=== PATIENT | female | born 1965 | race American Indian/Alaskan Native ===

== ENCOUNTER 2017-04-09 16:33 | Emergency (ER) | payer OTHER ==
[~2017-04-09] VITALS: Ht 177.8 cm; Wt 90.7 kg
[2017-04-09] MEDS ORDERED: KETOROLAC TROME10 MG PO (18:40)
== END 2017-04-09 18:56 | disposition home or self-care (01) ==
LOC: ED 16:33
DX: R10.9 Unspecified abdominal pain (principal)
CPT/HCPCS: 80053; 81001; 82150; 83690; 84703; 85025; 96374; 99283; J1885

== ENCOUNTER 2018-04-10 21:38 | Emergency (ER) | payer OTHER ==
[~2018-04-10] VITALS: Ht 177.8 cm; Wt 90.7 kg
--- OUTSIDE RECORDS SUMMARY | ~2018-04-10 | XMS | Clinical Summary ---
Demographics + + + | Address | [address] | | | [place] [address] | + + + | Home Phone | | + + + | Preferred Language | Unknown | + + + | Marital Status | Unknown | + + + | Advent Affiliation | Unknown | + + + | Race | Unknown | + + + | Ethnic Group | Unknown | + + + Author + + + | Author | [facility] | + + + | Organization | [facility] | + + + | Address | Unknown | + + + | Phone | Unavailable | + + + Care Team Providers + +------+ + | Care Cooker Tender Name | Role | Phone | + +------+ + PP | Unavailable | + +------+ + Allergies Not on File Current Medications Not on file Active Problems Not on file Social History + +-------+ +--------+------+ | Tobacco Use | Types | Packs/Day | Years | Date | | | | | Used | | + +-------+ +--------+------+ | Never Assessed | | | | | + +-------+ +--------+------+ + + + | Sex Assigned at | Date Recorded | | | | + + + | Not on file | | + + + Plan of Treatment Not on file Results Not on filefrom Last 3 Months Insurance + +--------+ +------+-------+ + | Payer | Benefi | Subscriber | Type | Phone | Address | | | t Plan | ID | | | | | | / | | | | | | | Group | | | | | + +--------+ +------+-------+ + | MEDICAID | MEDICA | [id number] | | | [address] | | | [place] | | | | [place] | | | INPT & | | | | [id number] | | | OUPT | | | | | + +--------+ +------+-------+ + + +--------+ +--------+ + + | Guarantor Name | Accoun | Relation to | Date | Phone | Billing Address | | | t Type | Patient | of | | | | | | | | | | + +--------+ +--------+ + + | STEPHANIE TUCKER | Person | Self [birth year] Home: | [address] | | | al/Fam | | 1965 | [phone] [place] [address] | | | michelle | | | [phone] | | + +--------+ +--------+ + +"
--- OUTSIDE RECORDS SUMMARY | ~2018-04-10 | XMS | Clinical Summary ---
Demographics + + + | Address | [address] | | | [place] [address] | + + + | Home Phone | | + + + | Preferred Language | Unknown | + + + | Marital Status | Unknown | + + + | Yazidism Affiliation | Unknown | + + + | Race | Unknown | + + + | Ethnic Group | Unknown | + + + Author + + + | Author | [facility] | | | and [place] | + + + | Organization | [facility] | | | and [place] | + + + | Address | Unknown | + + + | Phone | Unavailable | + + + Care Team Providers + +------+ + | Care Calender Let Off Helper Name | Role | Phone | + [...] | + + + Plan of Treatment + + + + + | Health Maintenance | Due Date | Last Done | Comments | + + + + + | Vaccine: | | | | | Dtap/Tdap/Td (1 - | 3 | | | | Tdap) | | | | + + + + + | Cervical Cancer | | | | | Screening (Pap) | 4 | | | + + + + + | Vaccine: Influenza | | | | | (#1) | 8 | | | + + + + + Results Not on filefrom Last 3 Months"
[~2018-04-10 21:38] MED LIST: KETOROLAC TROME10 MG PO
[2018-04-10] MEDS ORDERED: LEVOXYL88 MCG PO (21:49)
--- NOTE | 2018-04-11 07:00 | EKG ---
[facility] [address] [place], [place] [address] Signed Sinus bradycardia Otherwise normal ECG No previous ECGs available Confirmed by MARIA ESTHER TERRY MD ([id number]) on 04/11/2018 7:00:24 AM Electronically Signed By: MARIA ESTHER TERRY MD 04/11/18 0700 PATIENT NAME: OMKAR MUNIZ Electrocardiogram DATE OF : 63 PHYSICIAN: MARIA ESTHER TERRY MD REPORT #: [id number] REPORT IS CONFIDENTIAL AND NOT TO BE RELEASED WITHOUT AUTHORIZATION
== END 2018-04-11 00:22 | disposition home or self-care (01) ==
LOC: ED 21:38
DX: R00.2 Palpitations (principal); E03.9 Hypothyroidism, unspecified; Z87.891 Personal history of nicotine dependence; Z79.899 Other long term (current) drug therapy
CPT/HCPCS: 71046; 80053; 84484; 85025; 93005; 93010; 99285

== ENCOUNTER 2022-02-17 09:49 | Emergency (ER) | payer OTHER ==
[~2022-02-17] VITALS: Ht 177.8 cm; Wt 96.5 kg
[~2022-02-17 09:49] MED LIST changes: +LEVOXYL88 MCG PO
[2022-02-17] MEDS ORDERED: ALBUTEROL2.5 MG/3 M INH (10:21)
[2022-02-17] MEDS ORDERED: ZITHROMAX250 MG PO (11:15)
[2022-02-17] MEDS ORDERED: PREDNISONE20 MG PO (11:15)
== END 2022-02-17 11:31 | disposition home or self-care (01) ==
LOC: ED 09:49
DX: J45.901 Unspecified asthma with (acute) exacerbation (principal); J06.9 Acute upper respiratory infection, unspecified; Z20.822 Contact with and (suspected) exposure to COVID-19; E03.9 Hypothyroidism, unspecified; Z87.891 Personal history of nicotine dependence; Z79.899 Other long term (current) drug therapy
CPT/HCPCS: 71045; 87502; 99285-25; C9803; J7512; U0003

== ENCOUNTER 2022-10-10 06:55 | Day surgery (SDC) | payer OTHER ==
[~2022-10-10] VITALS: Ht 177.8 cm; Wt 102.0 kg
[~2022-10-10 06:55] MED LIST changes: +ALBUTEROL2.5 MG/3 M INH; +PREDNISONE20 MG PO; +VENTOLIN HFA18 GM INH; +ZITHROMAX250 MG PO
--- NOTE | 2022-10-10 08:31 | NUR ---
PT ALERT, ORIENTED AND SUPPORTED BY HER . PT ANXIOUS, GOT EMOTIONAL AND REQUESTED PRAYER. LEFT RM, GAVE ENCOURAGEMENT. PT SEEMED SURPRISED SHE WAS EMOTIONAL. SUPPORT GIVEN, WILL RETURN FOR DC.
--- NOTE | 2022-10-10 09:00 | NUR ---
10/10/22 0900 Deann Diaz 0855 PATIENT ARRIVES TO PACU AWAKE BUT VERY DROWSY. RESP EVEN AND UNLABORED, NC AT 2 LITERS TURNED OFF. PATIENT C/O ABD CRAMPING, ENCOURAGED TO PASS GAS. 0900 PATIENT AWAKE OFF/ON, BUT DROWSY. RESP EVEN AND UNLABORED, ROOM AIR SATS >96%. PASSING GAS.
--- NOTE | 2022-10-10 11:27 | OR ---
[facility] [address] [place], [place] [address] Signed DATE OF OPERATION: 10/10/2022 SURGEON: Ronald Oelary MD PREOPERATIVE DIAGNOSIS: Screening. POSTOPERATIVE DIAGNOSES: 1. Long redundant left colon. 2. Minimal to moderate sigmoid diverticulosis. 3. 3 mm polyps x3 at 7 cm in rectum. 4. 5 mm polyp at 80 cm in proximal left colon. PROCEDURE: Colonoscopy with hot biopsy. ESTIMATED BLOOD LOSS: None. INDICATIONS: Stephanie is a 57-year-old female, asked to see me for her initial screening colonoscopy. There is no family history of colon cancer or polyps. She has no lower GI complaints. In the office, I gave her a pamphlet on colonoscopy. We reviewed the nature of that test. There is risk including, but not limited to gas bloating, crampy abdominal pain, bleeding, perforation requiring surgery, and missed diagnosis. We also reviewed the need for monitored anesthesia care given her very heavy neck, chest and abdomen, full round face along with her history of COPD. She had expressed understanding and wished to proceed. PROCEDURE NOTE: Stephanie was taken into our endoscopy suite and placed in the left lateral decubitus position. She was given monitored anesthesia care with IV propofol per our nurse pump stitcher. A digital rectal exam was performed and she had small external hemorrhoids. She has good sphincter tone. There were no masses. was introduced and advanced under direct visualization of the camera. We found that she has a very long redundant left colon. It took extra propofol and abdominal compression in order to get the scope into the cecum itself. Her prep was quite excellent. We could easily see the appendiceal orifice and the ileocecal valve. The scope was then slowly withdrawn. The above-mentioned polyps were easily removed with the help of hot biopsy forceps. She has diverticula in her sigmoid colon. They were minimal to moderate in Electronically Signed By: RONALD OLEARY MD 10/10/22 1127 PATIENT NAME: STEPHANIE MUNIZ OPERATIVE REPORT DATE OF : 63 REPORT #: [id number] PHYSICIAN: RONALD OLEARY MD PCP: CYNDIE CLAROS MD REPORT IS CONFIDENTIAL AND NOT TO BE RELEASED WITHOUT AUTHORIZATION [facility] [address] [place] [id number] Signed size, minimal to moderate in number, and scattered about. Once in the rectum, the scope had been retroflexed. There was very little in the way of any internal hemorrhoid tissue. After this, the gas was suctioned out and colonoscope removed. Stephanie tolerated the procedure quite well. RECOMMENDATIONS: I will see Stephanie back in my office in 7 to 14 days to review her results. Ronald Oleary MD ALB/MODL /[id number] cc: MD Ronald Bergeron MD Copies: CYNDIE CLAROS MD, ANDREW L MD ~ Electronically Signed By: RONALD OLEARY MD 10/10/22 1127 PATIENT NAME: STEPHANIE MUNIZ OPERATIVE REPORT DATE OF : 63 REPORT #: [id number] PHYSICIAN: RONALD OLEARY MD PCP: CYNDIE CLAROS MD REPORT IS CONFIDENTIAL AND NOT TO BE RELEASED WITHOUT AUTHORIZATION
--- NOTE | 2022-10-11 12:46 | PATH ---
[facility] [address] [facility] [place], [place] [address] Signed SPECIMEN(S): A COLON POLYP AT 7 CM SPECIMEN(S): B PROXIMAL DESCENDING/LEFT COLON POLYP AT 80 CM SPECIMEN SOURCE: A. COLON POLYP AT 7 CM B. PROXIMAL DESCENDING/LEFT COLON POLYP AT 80 CM CLINICAL HISTORY: Colon screening. Postop: Polyps, diverticulosis, long redundant left colon, small external hemorrhoids. FINAL PATHOLOGIC DIAGNOSIS: A. Colon polyp at 7 cm: - Hyperplastic polyp (two fragments). B. Proximal descending / left colon polyp at 80 cm: - Tubular adenoma (one fragment). JVR:[facility]:C2NR MICROSCOPIC EXAMINATION: Histologic sections of all submitted blocks are examined by light microscopy. These findings, together with the gross examination, support the pathologic diagnosis. GROSS DESCRIPTION: A. The specimen, labeled and designated "Muniz, colon polyp at 7 cm," is received in formalin and consists of three brennan soft tissue fragments, ranging from 0.3-0.4 cm. Entirely submitted in (A1). B. The specimen, labeled and designated "Muniz, proximal descending/left colon polyp at 80 cm," is received in formalin and consists of two brennan soft tissue fragments, ranging from 0.1-0.3 cm. Entirely submitted in (B1). VB (under the direct supervision of a pathologist) The Gross Description was prepared using a voice recognition system. The report was reviewed for accuracy; however, sound-alike word errors, addition and/or deletions may occur. If there is any question about this report, please contact Client Services. PERFORMING LABORATORY: The technical component was performed by [facility], [address] [place] [id number] (CLIA# [id number]). Professional interpretation was performed by [facility] [place] [facility], PATIENT NAME: OMKAR MUNIZ PATHOLOGY DATE OF : 63 REPORT #: [id number] PHYSICIAN: [facility] PCP: CYNDIE CLAROS MD REPORT IS CONFIDENTIAL AND NOT TO BE RELEASED WITHOUT AUTHORIZATION [address] [address] [address], [place] [address] (CLIA#: [id number]). Diagnostician: Sam Feldman MD Pathologist Electronically Signed 10/11/2022 Copies: ~ PATIENT NAME: OMKAR MUNIZ PATHOLOGY DATE OF : 63 REPORT #: [id number] PHYSICIAN: [facility] PCP: CYNDIE CLAROS MD REPORT IS CONFIDENTIAL AND NOT TO BE RELEASED WITHOUT AUTHORIZATION
== END 2022-10-10 09:35 | disposition home or self-care (01) ==
LOC: DS 06:55 → OPS 06:55 → DS 08:15 → OPS 08:15
PROVIDERS: ATTEND Colon & Rectal Surgery
PROC: 0DBP8ZX Excision of Rectum, Via Natural or Artificial Opening Endoscopic, Diagnostic (ICD-10-PCS; 2022-10-10)
PROC: 0DBM8ZX Excision of Descending Colon, Via Natural or Artificial Opening Endoscopic, Diagnostic (ICD-10-PCS; principal; 2022-10-10 08:05)
DX: Z12.11 Encounter for screening for malignant neoplasm of colon (principal); K57.30 Diverticulosis of large intestine without perforation or abscess without bleeding; D12.4 Benign neoplasm of descending colon; K62.1 Rectal polyp; J44.9 Chronic obstructive pulmonary disease, unspecified; J45.20 Mild intermittent asthma, uncomplicated; E66.9 Obesity, unspecified; N18.2 Chronic kidney disease, stage 2 (mild); Z87.891 Personal history of nicotine dependence; Z79.899 Other long term (current) drug therapy; Z88.8 Allergy status to other drugs, medicaments and biological substances; Z68.30 Body mass index [BMI] 30.0-30.9, adult
CPT/HCPCS: J2704; J7121